=== PATIENT | male | born 1950 | race Caucasian/White ===

== ENCOUNTER 2018-06-15 14:23 | Inpatient (IN) | payer OTHER, MEDICARE, SELFPAY ==
[2018-06-15] VITALS (14 sets, daily range): BP systolic 96–119; BP diastolic 48–90; PULSE 80–172; RESP 18–94; TEMP 37.2–39.5; O2SAT 23–99; BMI 25.5
--- NOTE | 2018-06-15 14:38 | DI.RAD.S_ITS ---
PROCEDURE: XR CHEST 1V INDICATIONS: cough, fever TECHNIQUE: One view of the chest was acquired. COMPARISON: None. FINDINGS: Surgical changes and devices: None. Lungs and pleura: There is a moderate-sized area of consolidation identified at the right lung base. Haziness to the left lung base is evident overlying the diaphragm. No left-sided areas of chronic consolidation are evident. There is no pneumothorax or large effusion. Mediastinum: Mediastinal contours appear normal. Heart size is normal. Bones and chest wall: No suspicious bony lesions. Overlying soft tissues appear unremarkable. IMPRESSION: Right lower lobe pneumonia. Followup imaging in 4-6 weeks is recommended to document resolution. Dictated by: Ad Nunez M.D. on 06/15/2018 at 14:21 Approved by: Ad Nunez M.D. on 06/15/2018 at 14:23
[2018-06-15 14:48] LABS: Add Manual Diff / Slide Review NO; Basophils Percent Auto 0.1 % (0-2); Eosinophils Percent Auto 1.8 % (2-4); Hematocrit 42.8 % (41-53); Hemoglobin 14.5 g/dL (13.5-17.5); Lymphocytes Percent Auto 53.1 % (25-40); Mean Corpuscular HGB Conc 33.8 % (30-36); Mean Corpuscular Volume 91.7 fL (80-100); Monocytes Percent Auto 4.7 % (3-14); Neutrophils Absolute Auto 8300 /uL (1500-7000); Neutrophils Percent Auto 40.3 % (50-75); Platelet Count 183 X10^3/uL (150-400); Red Blood Cell Count 4.67 X10^6/uL (4.5-5.9); Red Cell Distribution Width 13.1 % (11.6-14.8); White Blood Cell Count 20.6 X10^3/uL (4.5-11.0)
[2018-06-15] MEDS: SODIUM CHLORIDE 0.9% 2,422.17 ML 807.39 ML IV (14:49)
[2018-06-15 14:55] LABS: Influenza A and B by PCR Rapid Negative (Negative)
[2018-06-15 14:56] LABS: Alanine Aminotransferase 68 IU/L (21-72); Albumin 4.2 g/dL (3.5-5.0); Albumin Globulin Ratio 1.4 (1.0-2.8); Alkaline Phosphatase 94 U/L (38-126); Aspartate Aminotransferase 46 IU/L (17-59); BUN Creatinine Ratio 13.8 (6-22); Bilirubin Total 1.3 mg/dL (0.2-1.3); Blood Urea Nitrogen 18 mg/dL (9-20); Calcium 9.1 mg/dL (8.4-10.2); Carbon Dioxide 24 mmol/L (22-32); Chloride 100 mmol/L (98-107); Estimated Glomerular Filt Rate 55.2 mL/min (>60); Globulin 3.1 g/dL (1.7-4.1); Glucose 121 mg/dL (80-110); HEMOLYSIS < 15 (0-50); Sodium 140 mmol/L (137-145); Total Protein 7.3 g/dL (6.3-8.2)
[2018-06-15 15:14] LABS: Procalcitonin 0.09 ng/mL (<0.5)
[2018-06-15] MEDS: METOPROLOL TARTRATE 5 MG/5 ML INJ IV (15:18)
[2018-06-15] MEDS: levoFLOXacin 750 MG/150 ML PIGGYBACK 100 MG IV (16:15)
[2018-06-15 17:56] LABS: Magnesium 2.2 mg/dL (1.6-2.3); Phosphorous 1.9 mg/dL (2.3-3.7)
--- NOTE | 2018-06-15 18:10 | P.HP_ITS ---
History of Present Illness Date Patient Seen: 06/15/18 Time Patient Seen: 18:00 Chief complaint: Afib Narrative: This is a very pleasant 67-year-old male with a past medical history significant for tachyarrhythmia. Apparently patient was diagnosed with tachyarrhythmia around June of last year. He reported ventricular tachycardia He was given a echocardiogram examination and had reportedly normal ejection fraction as well as no significant valvulopathy He has been in his usual state of health when he developed some coughing as well as shortness of breath. He denies any sick contact. No travel outside the country. He denies any recent hospitalization. He reported some mild elevated temperature. He related a recent history of the body aching and feeling of having had a bad cold about 2 weeks ago These new symptoms started slowly after the cold symptoms were resolving. He also reported chest palpitation. He also admitted that he has not taken his beta-duke the last 24 hr. He stated he might have forgotten to take it. In the ED, a chest x-ray showing pneumonia of the right lower lung. He was giving antibiotics. Stated did feel some nausea better. He is about to finish a full sentence without having to stop because of shortness of breath. He is not a smoker. He had a history of malaria about 3 years ago shows completely treated. No other complaints at this time. Patient History Medical History Arrhythmogenic right ventricular tachycardia (Acute) Malaria (Acute) Family & Social History Tobacco & Substance use: Smoking Status Never smoker alcohol intake frequency 0-2 drinks per day Substance Use Type does not use Meds Home Medications Medication Instructions Recorded Confirmed Type metoprolol tartrate 25 mg PO BID 06/15/18 06/15/18 History Allergies Allergy/AdvReac Type Severity Reaction Status Date / Time No Known Drug Allergies Allergy Verified 06/15/18 14:32 Review of Systems Review of Systems All systems reviewed & are unremarkable except as noted in HPI and below Exam Vital Signs (past 8 hours): - 06/15/18 14:30 06/15/18 14:32 06/15/18 14:51 Temperature 103.1 F H Pulse Rate 159 H 118 H 172 H Respiratory Rate 94 H 27 H 20 Blood Pressure 119/74 Blood Pressure [Left Arm] 110/62 112/90 Pulse Oximetry 23 L 95 99 06/15/18 15:00 06/15/18 15:29 06/15/18 16:06 Temperature 101.2 F H Pulse Rate 145 H 95 H 96 H Respiratory Rate 25 H 20 18 Blood Pressure Blood Pressure [Left Arm] 98/69 112/77 111/62 Pulse Oximetry 95 99 98 06/15/18 16:30 06/15/18 17:00 06/15/18 17:30 Temperature Pulse Rate 99 H 102 H 98 H Respiratory Rate 29 H 27 H 24 Blood Pressure Blood Pressure [Left Arm] 119/66 114/68 110/62 Pulse Oximetry 93 91 92 Oxygen Delivery Method Room Air Narrative Exam Narrative: NO ACUTE DISTRESS. PATIENT IS ALERT ORIENTED X3. VITAL SIGNS STABLE HEAD ATRAUMATIC NORMOCEPHALIC NECK : SUPPLE WITHOUT ADENOPATHY NO CAROTID BRUITS EYE: EOMI, PERRLA, NORMAL CONJUNCTIVA; NO JAUNDICE CHEST: REGULAR RATE. NO RUBS. PMI IS NON DISPLACED. NO MURMURS; NORMAL S1- S2 PULMONARY: DECREASED BS OVER THE BASES. MILD BIBASILAR CRACKLES NOTED; NO INCREASED DULLNESS TO PERCUSSION ABDOMEN: SOFT. NONTENDER. NONDISTENDED. BOWEL SOUNDS ARE PRESENT IN ALL 4 QUADRANTS. NO MASS. EXTREMITIES: NO EDEMA.. NO CYANOSIS CLUBBING NOTED. NEURO: CRANIAL NERVES 2-12 GROSSLY INTACT. NO FOCAL NEUROLOGICAL DEFICIT NOTED. MSK: NORMAL RANGE OF MOTION FOR AGE. NO JOINT EFFUSION. SKIN: NORMAL FOR ETHNICITY; NO ECCHYMOSIS. NO LESION. GOOD TURGOR.; NO RASHES : NORMAL EXTERNAL GENITALIA. PSYCH : APPROPRIATE MOOD AND AFFECT. ALERT AWAKE ORIENTED X3 Objective Labs Result Diagrams: 06/15/18 Unknown 06/15/18 Unknown Labs: Laboratory Results - last 24 hr 06/15/18 06/15/18 06/15/18 14:29 14:42 Unknown WBC 20.6 H RBC 4.67 Hgb 14.5 Hct 42.8 MCV 91.7 MCH 31.0 MCHC 33.8 RDW 13.1 Plt Count 183 Neut % (Auto) 40.3 L Lymph % (Auto) 53.1 H [place] % (Auto) 4.7 Eos % (Auto) 1.8 L Baso % (Auto) 0.1 Neut # (Auto) 8300 H Sodium Potassium Chloride Carbon Dioxide BUN Creatinine Estimated GFR BUN/Creatinine Ratio Glucose Lactate 1.0 Calcium Phosphorus Magnesium Total Bilirubin AST ALT Alkaline Phosphatase Total Protein Albumin Globulin Albumin/Globulin Ratio Procalcitonin Influenza A & B (PCR) Negative 06/15/18 06/15/18 Unknown Unknown WBC RBC Hgb Hct MCV MCH MCHC RDW Plt Count Neut % (Auto) Lymph % (Auto) [place] % (Auto) Eos % (Auto) Baso % (Auto) Neut # (Auto) Sodium 140 Potassium 4.0 Chloride 100 Carbon Dioxide 24 BUN 18 Creatinine 1.30 H Estimated GFR 55.2 L BUN/Creatinine Ratio 13.8 Glucose 121 H Lactate Calcium 9.1 Phosphorus 1.9 L Magnesium 2.2 Total Bilirubin 1.3 AST 46 ALT 68 Alkaline Phosphatase 94 Total Protein 7.3 Albumin 4.2 Globulin 3.1 Albumin/Globulin Ratio 1.4 Procalcitonin 0.09 Influenza A & B (PCR) Assessment & Plan Plan: Assessment/Plan Narrative: IMPRESSION AND PLAN RIGHT LOWER LOBE PNEUMONIA. THIS IS MOST LIKELY COMMUNITY-ACQUIRED PNEUMONIA. PATIENT WILL BE STARTED ON CEFEPIME AND AZITHROMYCIN FOR NOW. SPUTUM CULTURE WILL BE ORDERED. OXYGEN THERAPY NEEDED ONLY. CONTINUOUS PULSE OX INDICATED. TACHY-ARRHYTHMIA. MOST LIKELY SECONDARY TO NONCOMPLIANCE. HIS VITAL SIGNS ARE STABLE AT THIS POINT. HIS TACHYCARDIA HAS RESOLVED AFTER IV TREATMENT. WE WILL RESTART HIS HOME DOSE TONIGHT LEUKOCYTOSIS. SECONDARY TO PNEUMONIA. SPUTUM CULTURE WILL BE SENT. BLOOD CULTURE HAS BEEN COLLECTED. A DAILY CBC TO FOLLOW; WILL ORDER A UA FOR COMPLETENESS. SIRS CRITERIA MET VS POSSIBLE SEPSIS SUSPECTED. PATIENT WILL BE CONTINUED ON IV FLUID; CONTINUE CURRENT ANTIBIOTICS. FOLLOW CULTURES. WATCH VITAL ORGANS CLOSELY. ADDITIONAL MANAGEMENT INDICATED CLINICALLY ACUTE RENAL FAILURE. MOST LIKELY PRE RENAL AZOTEMIA. WE WILL AVOID ALL NEPHROTOXIN MEDICATIONS. DOSE ALL MEDICATION PER GFR. DAILY LABS TO FOLLOW ; IV FLUID HYPER GLYCEMIA. CAUSE IS UNCLEAR. ADDITIONAL MANAGEMENT OUTPATIENT. HYPOPHOSPHATEMIA. THIS WILL BE REPLACED P.O. TODAY. REPEAT LABS IN THE MORNING DURATION OF STAY IS BETWEEN 2-3 DAYS. Time Spent With Patient Time with patient: Greater than 35 minutes
[2018-06-15] MEDS: SODIUM CHLORIDE 0.45% 1,000 ML 100 ML IV (18:43)
[2018-06-15] MEDS: SODIUM,POTASSIUM PHOSPHATES PACKET 2 EACH PO (18:59)
--- NOTE | 2018-06-15 19:33 | ED_ITS ---
HPI - Arrhythmia/Palpitations General Chief Complaint: Arrhythmia/Palpitations Stated Complaint: Afib Time Seen by Provider: 06/15/18 14:23 Source: patient and family Mode of arrival: ambulatory Limitations: no limitations History of Present Illness HPI narrative: 67-year-old male, nonsmoker presents with his and a chief complaint of a productive cough for the past few days with subjective fever and occasional chills. He denies nausea or vomiting but has had an episode or 2 of diarrhea. He is visiting locally from his home in [facility] and went to the walk-in clinic for evaluation. He had significantly elevated heart rate and was sent here for evaluation. 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 His last trip was in December. He routinely takes metoprolol twice daily but states he has for gotten since traveling and is working on developing a process to not forget. It is unclear when his rapid heart rate started as he is largely asymptomatic from it MD complaint: rapid heart beat and heart racing Arrhythmia history: other Associated symptoms: shortness of breath and cough Treatments prior to arrival: beta-duke Related Data Home Medications Medication Instructions Recorded Confirmed metoprolol tartrate 25 mg PO BID 06/15/18 06/15/18 Allergies Allergy/AdvReac Type Severity Reaction Status Date / Time No Known Drug Allergies Allergy Verified 06/15/18 14:32 Review of Systems Review of Systems All systems reviewed & are unremarkable except as noted in HPI and below Constitutional Denies chills, Reports fever(s), Denies lethargy and Denies weakness Eyes Denies change in vision, Denies eye discharge, Denies irritation and Denies loss of vision ENT Ears, Nose, Mouth, and Throat: Denies change in voice, Denies neck pain and Denies sore throat Cardiovascular Denies chest pain, Reports rapid heart rate, Denies irregular heart rhythm, Denies lightheadedness, Denies palpitations, Reports dyspnea, Denies dyspnea on exertion and Denies orthopnea Respiratory Reports cough, Reports dyspnea, Denies dyspnea on exertion and Denies wheezing Gastrointestinal Gastrointestinal: Denies abdominal pain, Denies change in bowel habits, Reports diarrhea, Denies nausea and Denies vomiting Genitourinary Denies hematuria, Denies flank pain, Denies urinary incontinence and Denies urinary urgency Musculoskeletal Denies neck pain Integumentary/Breasts Denies pruritus, Denies erythema, Denies rash and Denies wounds Neurologic Denies confusion, Denies loss of vision and Denies weakness Psychiatric Denies anxiety, Denies confusion, Denies depression, Denies homicidal ideation and Denies suicidal ideation Endocrine Denies palpitations Hematologic/Lymphatic Denies easy bruising Allergic/Immunologic Denies wheezing PFSH Medical History Arrhythmogenic right ventricular tachycardia (Acute) Malaria (Acute) Social History household members: spouse Smoking Status: Never smoker alcohol intake: former Exam Narrative Exam Narrative: GENERAL: This is a well-nourished, well-developed patient, in mild distress. HEAD: Atraumatic. Normocephalic. No temporal or scalp tenderness. EYES: Pupils equal round and reactive. Extraocular motions intact. No scleral icterus. No injection or drainage. ENT: Nose without bleeding, purulent drainage or septal hematoma. Throat without erythema, tonsillar hypertrophy or exudate. Uvula midline. Airway patent. NECK: Trachea midline. No JVD or lymphadenopathy. Supple, nontender, no meningeal signs. CARDIOVASCULAR: Tachycardic and regular rhythm without murmurs, gallops, or rubs. RESPIRATORY: Crackles in right base GASTROINTESTINAL: Abdomen soft, non-tender, nondistended. No hepato-splenomegaly , or palpable masses. No guarding. EXTREMITIES: No clubbing, cyanosis, or edema. No joint tenderness, effusion, or edema noted. BACK: Nontender without deformity or crepitance. No flank tenderness. NEURO: AOx3. SKIN: No rash or erythema. Initial Vital Signs Initial Vital Signs: Vital Signs Pulse Rate 159 H 06/15/18 14:30 Respiratory Rate 94 H 06/15/18 14:30 Blood Pressure 110/62 06/15/18 14:30 Pulse Oximetry 23 L 06/15/18 14:30 Course Orders Ordered: ED Orders 06/15/18 14:29 Influenza A and B by PCR Rapid Stat 06/15/18 14:38 XR chest 1V Stat 06/15/18 14:39 Blood Culture Stat 06/15/18 14:42 Lactate (Lactic Acid) Stat 06/15/18 16:59 Education, smoking cessation ONGOING 06/15/18 17:04 Consult to Discharge Planning Routine Consult to Occupational Therapy Evaluate & Treat Consult to Physical Therapy Evaluate & Treat 06/16/18 05:00 Complete Blood Count AUTO DIFF DAILY Comprehensive Metabolic Panel DAILY 06/16/18 08:00 EKG-12 Lead Routine 06/17/18 05:00 Complete Blood Count AUTO DIFF DAILY Comprehensive Metabolic Panel DAILY 06/18/18 05:00 Complete Blood Count AUTO DIFF DAILY Comprehensive Metabolic Panel DAILY 06/19/18 05:00 Complete Blood Count AUTO DIFF DAILY Comprehensive Metabolic Panel DAILY Acetaminophen (Tylenol) 650 mg PO Q6HR PRN PRN Reason: As Needed for Fever/Mild Pain Al Hydrox/Mg Hydrox/Simethicone (Maalox Plus) 30 ml PO Q6HR PRN PRN Reason: Dyspepsia Azithromycin (Zithromax) 500 mg PO DAILY LISA Bisacodyl (Dulcolax) 10 mg PO DAILY PRN PRN Reason: Constipation Calcium Carbonate (Tums) 1,000 mg PO Q4HR PRN PRN Reason: Dyspepsia Diphenhydramine HCl (Benadryl) 25 mg IV Q6HR PRN PRN Reason: NAUSEA AND ITCHING Heparin Sodium (Porcine) (Heparin) 5,000 unit SUBCUT BID [facility] Sodium Chloride (Normal Saline 0.9%) 2,422.17 mls @ 807.39 mls/hr 30 ml/kg infuse over 3 hr (2422.17 ml) IV CONT LISA Last Infusion: 06/15/18 18:12 Dose: 0 mls/hr Admin: 06/15/18 14:49 Dose: 807.39 mls/hr Sodium Chloride (Normal Saline 0.45%) 1,000 mls @ 100 mls/hr IV CONT LISA Last Admin: 06/15/18 18:43 Dose: 100 mls/hr Cefepime HCl 1 gm/ Sodium (Chloride) 100 mls @ 200 mls/hr IV Q12H LISA Lorazepam (Ativan) 0.5 mg IV Q6HR PRN PRN Reason: Anxiety Metoprolol Tartrate (Lopressor) 25 mg PO BID LISA Metoprolol Tartrate (Lopressor) 5 mg IV Q6H PRN PRN Reason: SBP>180 AND/OR HR >110 Morphine Sulfate (Morphine) 2 mg IV Q4HR PRN PRN Reason: Pain, Moderate (4-6) Ondansetron HCl (Zofran) 4 mg IV Q4HR PRN PRN Reason: Nausea Pantoprazole Sodium (Protonix) 20 mg PO 0600 [facility] Potassium Phos/Sodium Phos (Phos-Nak Packet) 2 each PO DAILY LISA Stop: 06/16/18 09:01 Last Admin: 06/15/18 18:59 Dose: 2 each Discontinued Medications Levofloxacin (Levaquin) 750 mg in 150 mls @ 100 mls/hr IV NOW ONE Stop: 06/15/18 17:22 Last Infusion: 06/15/18 18:12 Dose: 0 mls/hr Admin: 06/15/18 16:15 Dose: 100 mls/hr Metoprolol Tartrate (Lopressor) 5 mg IV NOW ONE Stop: 06/15/18 15:19 Last Admin: 06/15/18 15:18 Dose: 5 mg Reevaluation(s) Reevaluation #1: The patient's tachycardia improves rather impressively after fluids, fever control and 1 dose of IV metoprolol. Consultations Consultation #1: Called to hospitalist for admission Vital Signs - 8 hr 06/15/18 14:30 06/15/18 14:32 06/15/18 14:51 Temperature 103.1 F H Pulse Rate 159 H 118 H 172 H Respiratory Rate 94 H 27 H 20 Blood Pressure 119/74 Blood Pressure [Left Arm] 110/62 112/90 Pulse Oximetry 23 L 95 99 06/15/18 15:00 06/15/18 15:29 06/15/18 16:06 Temperature 101.2 F H Pulse Rate 145 H 95 H 96 H Respiratory Rate 25 H 20 18 Blood Pressure Blood Pressure [Left Arm] 98/69 112/77 111/62 Pulse Oximetry 95 99 98 06/15/18 16:30 06/15/18 17:00 06/15/18 17:30 Temperature Pulse Rate 99 H 102 H 98 H Respiratory Rate 29 H 27 H 24 Blood Pressure Blood Pressure [Left Arm] 119/66 114/68 110/62 Pulse Oximetry 93 91 92 06/15/18 18:21 Temperature 101.8 F H Pulse Rate 97 H Respiratory Rate 24 Blood Pressure 112/66 Blood Pressure [Left Arm] Pulse Oximetry 93 MDM - Arrhythmia/Palpitations Lab Data Result diagrams: 06/15/18 Unknown 06/15/18 Unknown Lab Results 06/15/18 06/15/18 06/15/18 Range/Units 14:29 14:42 Unknown WBC 20.6 H (4.5-11.0) X10^3/uL RBC 4.67 (4.5-5.9) X10^6/uL Hgb 14.5 (13.5-17.5) g/dL Hct 42.8 (41-53) % MCV 91.7 (80-100) fL MCH 31.0 (26-34) PG MCHC 33.8 (30-36) % RDW 13.1 (11.6-14.8) % Plt Count 183 (150-400) X10^3/uL Neut % (Auto) 40.3 L (50-75) % Lymph % (Auto) 53.1 H (25-40) % [place] % (Auto) 4.7 (3-14) % Eos % (Auto) 1.8 L (2-4) % Baso % (Auto) 0.1 (0-2) % Neut # (Auto) 8300 H (6940-0977) /uL Sodium (137-145) mmol/L Potassium (3.4-5.1) mmol/L Chloride (98-107) mmol/L Carbon Dioxide (22-32) mmol/L BUN (9-20) mg/dL Creatinine (0.66-1.25) mg/dL Estimated GFR (>60) mL/min BUN/Creatinine Ratio (6-22) Glucose (80-110) mg/dL Lactate 1.0 (0.7-2.1) mmol/L Calcium (8.4-10.2) mg/dL Phosphorus (2.3-3.7) mg/dL Magnesium (1.6-2.3) mg/dL Total Bilirubin (0.2-1.3) mg/dL AST (17-59) IU/L ALT (21-72) IU/L Alkaline Phosphatase (38-126) U/L Total Protein (6.3-8.2) g/dL Albumin (3.5-5.0) g/dL Globulin (1.7-4.1) g/dL Albumin/Globulin Ratio (1.0-2.8) Procalcitonin (<0.5) ng/mL Influenza A & B (PCR) Negative (Negative) 06/15/18 06/15/18 Range/Units Unknown Unknown WBC (4.5-11.0) X10^3/uL RBC (4.5-5.9) X10^6/uL Hgb (13.5-17.5) g/dL Hct (41-53) % MCV (80-100) fL MCH (26-34) PG MCHC (30-36) % RDW (11.6-14.8) % Plt Count (150-400) X10^3/uL Neut % (Auto) (50-75) % Lymph % (Auto) (25-40) % [place] % (Auto) (3-14) % Eos % (Auto) (2-4) % Baso % (Auto) (0-2) % Neut # (Auto) (2237-7756) /uL Sodium 140 (137-145) mmol/L Potassium 4.0 (3.4-5.1) mmol/L Chloride 100 (98-107) mmol/L Carbon Dioxide 24 (22-32) mmol/L BUN 18 (9-20) mg/dL Creatinine 1.30 H (0.66-1.25) mg/dL Estimated GFR 55.2 L (>60) mL/min BUN/Creatinine Ratio 13.8 (6-22) Glucose 121 H (80-110) mg/dL Lactate (0.7-2.1) mmol/L Calcium 9.1 (8.4-10.2) mg/dL Phosphorus 1.9 L (2.3-3.7) mg/dL Magnesium 2.2 (1.6-2.3) mg/dL Total Bilirubin 1.3 (0.2-1.3) mg/dL AST 46 (17-59) IU/L ALT 68 (21-72) IU/L Alkaline Phosphatase 94 (38-126) U/L Total Protein 7.3 (6.3-8.2) g/dL Albumin 4.2 (3.5-5.0) g/dL Globulin 3.1 (1.7-4.1) g/dL Albumin/Globulin Ratio 1.4 (1.0-2.8) Procalcitonin 0.09 (<0.5) ng/mL Influenza A & B (PCR) (Negative) MDM Narrative Medical decision making narrative: Patient presents with grossly abnormal vital signs, the suspicion of early sepsis and large pneumonia on x-ray in the presence of elevated white blood cells. His tachyarrhythmia is likely due to a combination of underlying infection and medical noncompliance, nonetheless the patient's is sufficiently ill to warrant hospitalization for ongoing evaluation , treatment and stabilization Discharge Plan Departure Patient Disposition: Admitted As Inpatient Clinical Impression: Pneumonia Discharge Date/Time: 06/15/18 18:14 Interventions: ED Discharge Assessment Last Done: 06/15/18 18:14 Admit Date/Time: 06/15/18 17:03 Admit Provider: Anthony Zhang
[2018-06-15 19:52] LABS: Appearance Urine UA CLEAR; Bilirubin Urine UA NEGATIVE (NEGATIVE); Color Urine UA YELLOW; Glucose Urine UA NEGATIVE (Normal); Ketones Urine UA NEGATIVE (NEGATIVE); Leukocyte Esterase Urine UA NEGATIVE (NEGATIVE); Nitrite Urine UA NEGATIVE (Negative); Occult Blood Urine UA 1+ (Negative); Protein Urine UA TRACE (Negative); Specific Gravity Urine UA 1.025 (1.000-1.035); Urobilinogen Urine UA 0.2 E.U./dL (0.2)
[2018-06-15] MEDS: ACETAMINOPHEN 325 MG TABLET 650 MG PO (19:55)
[2018-06-15] MEDS: HEPARIN 5,000 UNIT/ML VIAL 5000 UNIT SUBCUT (19:55)
[2018-06-15] MEDS: CEFEPIME 1 GM in SODIUM CHLORIDE 0.9% 100 ML 200 ML IV (19:56)
[2018-06-15] MEDS: METOPROLOL IR 25 MG TABLET PO (19:56)
[2018-06-15 20:02] LABS: RBC Urine 0-1/HPF (0-5/HPF); Squamous Epithelial Cell Urine 0-1 /HPF; WBC Urine 0-1/HPF (0-5/HPF)
[2018-06-15 20:03] LABS: Bacteria Urine Moderate (10-30); Culture Indicated Urine Cult Not Indicated; Mucus Urine 1+ (Negative)
[2018-06-16] VITALS (14 sets, daily range): BP systolic 107–124; BP diastolic 57–68; PULSE 81–103; RESP 16–24; TEMP 36.7–39.2; O2SAT 93–98
[2018-06-16] MEDS: ACETAMINOPHEN 325 MG TABLET 650 MG PO ×3 (03:57→21:23)
[2018-06-16] MEDS: SODIUM CHLORIDE 0.45% 1,000 ML 100 ML IV (04:22)
[2018-06-16] MEDS: PANTOPRAZOLE 20 MG TABLET PO (06:00)
[2018-06-16 06:35] LABS: Add Manual Diff / Slide Review NO; Basophils Percent Auto 0.1 % (0-2); Eosinophils Percent Auto 3.4 % (2-4); Lymphocytes Percent Auto 50.7 % (25-40); Mean Corpuscular HGB Conc 34.4 % (30-36); Mean Corpuscular Hemoglobin 31.3 PG (26-34); Monocytes Percent Auto 6.1 % (3-14); Neutrophils Absolute Auto 6200 /uL (1500-7000); Neutrophils Percent Auto 39.7 % (50-75); Platelet Count 151 X10^3/uL (150-400); Red Blood Cell Count 3.85 X10^6/uL (4.5-5.9); Red Cell Distribution Width 12.8 % (11.6-14.8); White Blood Cell Count 15.7 X10^3/uL (4.5-11.0)
[2018-06-16 06:41] LABS: Alanine Aminotransferase 61 IU/L (21-72); Albumin 3.2 g/dL (3.5-5.0); Albumin Globulin Ratio 1.2 (1.0-2.8); Alkaline Phosphatase 77 U/L (38-126); Aspartate Aminotransferase 33 IU/L (17-59); Bilirubin Total 1.6 mg/dL (0.2-1.3); Blood Urea Nitrogen 11 mg/dL (9-20); Carbon Dioxide 23 mmol/L (22-32); Chloride 106 mmol/L (98-107); Estimated Glomerular Filt Rate > 60.0 mL/min (>60); Globulin 2.6 g/dL (1.7-4.1); Glucose 114 mg/dL (80-110); HEMOLYSIS < 15 (0-50); Potassium 3.8 mmol/L (3.4-5.1); Sodium 142 mmol/L (137-145); Total Protein 5.8 g/dL (6.3-8.2)
[2018-06-16] MEDS: AZITHROMYCIN 250 MG TABLET 500 MG PO (09:21)
[2018-06-16] MEDS: CEFEPIME 1 GM in SODIUM CHLORIDE 0.9% 100 ML 200 ML IV (09:21)
[2018-06-16] MEDS: SODIUM,POTASSIUM PHOSPHATES PACKET 2 EACH PO (09:22)
[2018-06-16] MEDS: METOPROLOL IR 25 MG TABLET PO ×2 (09:22→21:22)
[2018-06-16] MEDS: HEPARIN 5,000 UNIT/ML VIAL 5000 UNIT SUBCUT (09:22)
--- NOTE | 2018-06-16 10:15 | PT.IIE ---
Addendum entered and electronically signed by Marvin Aviles, PT 06/16/18 10:26: discussed case with OT, pt was able to use BR indep. at end of session, donned socks indep. No acute OT appears to be necessary at this time. Original Note: Medical History (Last Reviewed 06/15/18 @ 19:31 by Kenneth York DO) Arrhythmogenic right ventricular tachycardia (Acute) Malaria (Acute) Physical Therapy Inpatient Evaluation/Re-Eval M1 PT/OT-IP Prior Functional Status Start: 06/16/18 10:18 Freq: NEEDED Status: Active Protocol: Document 06/16/18 10:15 [facility] (Rec: 06/16/18 10:25 [facility] [id number]) Medical Review Prior Functional Status Medical History Reviewed Yes Mobility and Gait indep. community ambulation without device Activities of Daily Living and IADL's indep. I/ADLs Prior Functional Level (Other details) walks 2-4 miles per day in [place] (lives in [place]) Social History Household Members spouse Living Arrangements Apartment/Condo Number of Floors (Floors) One Floor Number of Stairs To Enter/Railing? 8 SE with rail Home Environment Standard Height Toilet Additional Social History Comment Pt with h/o tachyarrhythmia, presented with c/o increased cough and SOB. Chest radiograph showed R lower lobe pneumonia. M2 PT-IP Current Condition Start: 06/16/18 10:18 Freq: NEEDED Status: Active Protocol: Document 06/16/18 10:15 [facility] (Rec: 06/16/18 10:25 [facility] [id number]) Physical Therapy Current Condition Current Condition Evaluation Date 06/16/18 Treatment Diagnosis pneumonia, decreased activity tolerance M3 PT-IP Subjective Start: 06/16/18 10:18 Freq: NEEDED Status: Active Protocol: Document 06/16/18 10:15 [facility] (Rec: 06/16/18 10:25 [facility] [id number]) Subjective Physical Therapy Visit Type Type Initial Evaluation Visit Start Time 09:49 Visit Stop Time 10:15 Total Visit Minutes 26 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 Patient Goals to get out of hospital Therapy Pain Assessment Pain Present Pain Present Denied Pain M4 PT-IP Mobility and Gait Start: 06/16/18 10:18 Freq: NEEDED Status: Active Protocol: Document 12/15/18 10:15 [facility] (Rec: 06/16/18 10:25 [facility] [id number]) PT-Bed Mobility Assessment Supine to Sit Supine to Sit Independent Sit to Supine Sit to Supine Independent Scooting Scooting to Edge of Bed Independent PT-Transfer Assessment Sit to and From Stand Sit to and from Stand Independent Equipment Transfer Assistive Device None Transfers Transfer Destination Bed Transfer Technique Stand Step Pivot Transfer Ability Level of Assist Independent Gait Assessment Gait Gait Assistance Required: Independent Distance (Feet) 700 Assistive Devices Assistive Device None Gait Deviations General Gait Pattern Within Normal Limits Comments Gait Comments pt ambulated entire floor of 2nd level, no c/o SOB or increased HR. O2 saturation 96 % and HR 90 bpm after gait. Stair Climbing Assessment Evaluation Level of Assist On Stairs Independent Devices Stair Climbing Assistive Devices None Technique/Endurance Stair Climbing Direction Ascend and Descend Stair Climbing Technique Step Over Step Number of Steps Climbed 3 Query Text: PT-Balance Assessment Sitting Balance and Reactions Static Sitting Balance Ability Good Dynamic Sitting Balance Ability Good Standing Balance and Reactions Static Standing Balance Ability Good Dynamic Standing Balance Ability Good Device Used none M5 PT-IP Objective Assessments Start: 06/16/18 10:18 Freq: NEEDED Status: Active Protocol: Document 06/16/18 10:15 [facility] (Rec: 06/16/18 10:25 [facility] [id number]) Orientation Orientation/Cognition Level of Alertness Alert Orientation Name Age Birthday Month Date Year Day of Week Place Situation Gross Range of Motion Lower Extremity ROM Assessment Within Functional Limits Strength Lower Extremity Strength Assessment Within Functional Limits Coordination Assessment Gross Coordination Gross Coordination WNL Sensation Assessment Sensation Gross Sensation WNL Muscle Tone Muscle Tone WNL Yes M6 PT-IP Treatment Start: 06/16/18 10:18 Freq: NEEDED Status: Active Protocol: Document 06/16/18 10:15 [facility] (Rec: 06/16/18 10:25 [facility] [id number]) Physical Therapy Treatment Education Education Provided Safety Other Treatments Other Treatment Performed discusssed assistance when ambulating with family and/or staff when IV pole is intact. M7 PT-IP Assessment and Plan Start: 06/16/18 10:18 Freq: NEEDED Status: Active Protocol: Document 06/16/18 10:15 [facility] (Rec: 06/16/18 10:25 [facility] [id number]) PT Summary Assessment and Plan Potential Rehabilitation Potential Good Status of Condition at Evaluation Stable Summary Progress Towards Goals Safe For Discharge Assessment Summary Pt is able to walk 700+ ft with no imbalance, normal gait , and no c/o fatigue or SOB at this time. WI and O2 saturation WNL after ambulation. He is indep. with bed mobility. At this time, pt is cleared from physical therapy to d/c when medically stable, no further acute PT needs at this time. Pt encouraged to ambulate in hallway as tolerated with a family member or staff if alerting the RN first, and will require one person to assist with IV pole management . Frequency of Treatment Frequency Of Treatment Discharge Recommendations To Nursing Amount of Assist Needed Independent Discharge Recommendations PT Discharge Recommendations Home
--- NOTE | 2018-06-16 10:53 | PM.PN.1 ---
Subjective Date Patient Seen: 06/16/18 Time Patient Seen: 08:20 Interval history: PATIENT HAD A GOOD NIGHT NO FEVER OR CHILLS REPORTED NOT REQUIRING ANY OXYGEN TO MAINTAIN PROPER SAT NO SIGNIFICANT ISSUES OVERNIGHT Exam Vital Signs (past 8 hours): - 06/16/18 03:57 06/16/18 03:59 06/16/18 05:08 Temperature 102.3 F H 102.3 F H 98.8 F Pulse Rate 96 H Respiratory Rate 18 Blood Pressure 124/68 Pulse Oximetry 93 06/16/18 08:54 06/16/18 09:00 Temperature 98.6 F Pulse Rate 92 H Respiratory Rate 18 Blood Pressure 115/63 Pulse Oximetry 98 98 Oxygen Delivery Method Room Air Narrative Exam Narrative: NO ACUTE DISTRESS. PATIENT IS ALERT ORIENTED X3. VITAL SIGNS STABLE HEAD ATRAUMATIC NORMOCEPHALIC NECK : SUPPLE WITHOUT ADENOPATHY NO CAROTID BRUITS EYE: EOMI, PERRLA, NORMAL CONJUNCTIVA; NO JAUNDICE CHEST: REGULAR RATE. NO RUBS. PMI IS NON DISPLACED. NO MURMURS; NORMAL S1-S2 PULMONARY: DECREASED BS OVER THE BASES. MILD BIBASILAR CRACKLES NOTED; NO INCREASED DULLNESS TO PERCUSSION ABDOMEN: SOFT. NONTENDER. NONDISTENDED. BOWEL SOUNDS ARE PRESENT IN ALL 4 QUADRANTS. NO MASS. EXTREMITIES: NO EDEMA.. NO CYANOSIS CLUBBING NOTED. NEURO: CRANIAL NERVES 2-12 GROSSLY INTACT. NO FOCAL NEUROLOGICAL DEFICIT NOTED. MSK: NORMAL RANGE OF MOTION FOR AGE. NO JOINT EFFUSION. SKIN: NORMAL FOR ETHNICITY; NO ECCHYMOSIS. NO LESION. GOOD TURGOR.; NO RASHES : NORMAL EXTERNAL GENITALIA. PSYCH : APPROPRIATE MOOD AND AFFECT. ALERT AWAKE ORIENTED X3 Objective Labs Result Diagrams: 06/16/18 06:15 06/16/18 06:15 Labs: Laboratory Results - last 24 hr 06/15/18 06/15/18 06/15/18 14:29 14:42 19:50 WBC RBC Hgb Hct MCV MCH MCHC RDW Plt Count Neut % (Auto) Lymph % (Auto) [place] % (Auto) Eos % (Auto) Baso % (Auto) Neut # (Auto) Sodium Potassium Chloride Carbon Dioxide BUN Creatinine Estimated GFR BUN/Creatinine Ratio Glucose Lactate 1.0 Calcium Phosphorus Magnesium Total Bilirubin AST ALT Alkaline Phosphatase Total Protein Albumin Globulin Albumin/Globulin Ratio Procalcitonin Urine Color Yellow Urine Appearance Clear Urine pH 5.0 Ur Specific [place] 1.025 Urine Protein Trace H Urine Glucose (UA) Negative Urine Ketones Negative Urine Occult Blood 1+ H Urine Nitrate Negative Urine Bilirubin Negative Urine Urobilinogen 0.2 Ur Leukocyte Esterase Negative Urine RBC 0-1/hpf Urine WBC 0-1/hpf Ur Squamous Epith Cells 0-1 /hpf Urine Bacteria Moderate (10-30) H Urine Mucus 1+ H Ur Culture Indicated? Cult not indicated Micro UA Comment Not Reportable Influenza A & B (PCR) Negative 06/15/18 06/15/18 06/15/18 Unknown Unknown Unknown WBC 20.6 H RBC 4.67 Hgb 14.5 Hct 42.8 MCV 91.7 MCH 31.0 MCHC 33.8 RDW 13.1 Plt Count 183 Neut % (Auto) 40.3 L Lymph % (Auto) 53.1 H [place] % (Auto) 4.7 Eos % (Auto) 1.8 L Baso % (Auto) 0.1 Neut # (Auto) 8300 H Sodium 140 Potassium 4.0 Chloride 100 Carbon Dioxide 24 BUN 18 Creatinine 1.30 H Estimated GFR 55.2 L BUN/Creatinine Ratio 13.8 Glucose 121 H Lactate Calcium 9.1 Phosphorus 1.9 L Magnesium 2.2 Total Bilirubin 1.3 AST 46 ALT 68 Alkaline Phosphatase 94 Total Protein 7.3 Albumin 4.2 Globulin 3.1 Albumin/Globulin Ratio 1.4 Procalcitonin 0.09 Urine Color Urine Appearance Urine pH Ur Specific [place] Urine Protein Urine Glucose (UA) Urine Ketones Urine Occult Blood Urine Nitrate Urine Bilirubin Urine Urobilinogen Ur Leukocyte Esterase Urine RBC Urine WBC Ur Squamous Epith Cells Urine Bacteria Urine Mucus Ur Culture Indicated? Micro UA Comment Influenza A & B (PCR) 06/16/18 06/16/18 06:15 06:15 WBC 15.7 H RBC 3.85 L Hgb 12.0 L Hct 35.0 L MCV 91.0 MCH 31.3 MCHC 34.4 RDW 12.8 Plt Count 151 Neut % (Auto) 39.7 L Lymph % (Auto) 50.7 H [place] % (Auto) 6.1 Eos % (Auto) 3.4 Baso % (Auto) 0.1 Neut # (Auto) 6200 Sodium 142 Potassium 3.8 Chloride 106 Carbon Dioxide 23 BUN 11 Creatinine 1.00 Estimated GFR > 60.0 BUN/Creatinine Ratio 11.0 Glucose 114 H Lactate Calcium 8.0 L Phosphorus Magnesium Total Bilirubin 1.6 H AST 33 ALT 61 Alkaline Phosphatase 77 Total Protein 5.8 L Albumin 3.2 L Globulin 2.6 Albumin/Globulin Ratio 1.2 Procalcitonin Urine Color Urine Appearance Urine pH Ur Specific [place] Urine Protein Urine Glucose (UA) Urine Ketones Urine Occult Blood Urine Nitrate Urine Bilirubin Urine Urobilinogen Ur Leukocyte Esterase Urine RBC Urine WBC Ur Squamous Epith Cells Urine Bacteria Urine Mucus Ur Culture Indicated? Micro UA Comment Influenza A & B (PCR) Assessment & Plan Plan: Assessment/Plan Narrative: IMPRESSION AND PLAN RIGHT LOWER LOBE PNEUMONIA. THIS IS MOST LIKELY COMMUNITY-ACQUIRED PNEUMONIA. PATIENT WILL BE STARTED ON CEFEPIME AND AZITHROMYCIN FOR NOW. SPUTUM CULTURE PENDING . OXYGEN THERAPY NEEDED ONLY. CONTINUOUS PULSE OX INDICATED. INCENTIVE SPIROMETERY WA; ABG AND CXR SERIALLY TO FOLLOW INDICATED; ENCOURAGE AMB TACHY-ARRHYTHMIA. MOST LIKELY SECONDARY TO NONCOMPLIANCE. HIS VITAL SIGNS ARE STABLE AT THIS POINT. HIS TACHYCARDIA HAS RESOLVED AFTER IV TREATMENT. RESTARTED ON HIS HOME METOPROLOL DOSE LEUKOCYTOSIS. SECONDARY TO PNEUMONIA. IMPROVED; FOLLOW CULTURES CLOSELY. BLOOD CULTURE HAS BEEN COLLECTED AND ARE NEG TO DATE. DAILY CBC TO FOLLOW; BACTERURIA ON UA; PATIENT ALREADY ON ABX. DAILY CBC TO FOLLOW SIRS CRITERIA MET VS POSSIBLE SEPSIS SUSPECTED. PATIENT WILL BE CONTINUED ON IV FLUID; CONTINUE CURRENT ANTIBIOTICS. FOLLOW CULTURES. WATCH VITAL ORGANS CLOSELY. ADDITIONAL MANAGEMENT INDICATED CLINICALLY ACUTE RENAL FAILURE. MOST LIKELY PRE RENAL AZOTEMIA. RESOLVED; WE WILL AVOID ALL NEPHROTOXIN MEDICATIONS. DOSE ALL MEDICATION PER GFR. DAILY LABS TO FOLLOW; IV FLUID HYPER GLYCEMIA. CAUSE IS UNCLEAR. ADDITIONAL MANAGEMENT OUTPATIENT. HYPOPHOSPHATEMIA. THIS WILL BE REPLACED P.O. TODAY. REPEAT LABS IN THE MORNING DC IN NEXT 24-48 HRS Quality VTE Deep Vein Thrombosis/Pulmonary Embolism Present on Admission: No
[2018-06-16 11:29] LABS: Phosphorous 2.5 mg/dL (2.3-3.7)
--- NOTE | 2018-06-16 13:42 | OT.IP.TRT ---
Occupational Therapy Treatment Note M3 OT- IP Subjective and Pain Start: 06/16/18 13:41 Freq: Status: Active Protocol: Document 06/16/18 13:41 [facility] (Rec: 06/16/18 13:42 [facility] [id number]) OT- Subjective Occupational Therapy Visit Type Type Administrative Note Notes Per nursing and PT, OT eval not indicated as pt very independent. Therefore discharge Ot eval orders.
[2018-06-16] MEDS: CEFEPIME 1 GM in SODIUM CHLORIDE 0.9% 100 ML IV (21:22)
[2018-06-17] VITALS (14 sets, daily range): BP systolic 109–134; BP diastolic 68–86; PULSE 94–110; RESP 16–18; TEMP 37.3–39.3; O2SAT 91–98
[2018-06-17] MEDS: ACETAMINOPHEN 325 MG TABLET 650 MG PO ×2 (03:23→15:56)
[2018-06-17] MEDS: PANTOPRAZOLE 20 MG TABLET PO (06:13)
[2018-06-17 06:36] LABS: Add Manual Diff / Slide Review NO; Basophils Percent Auto 0.1 % (0-2); Eosinophils Percent Auto 4.5 % (2-4); Hematocrit 38.6 % (41-53); Hemoglobin 13.2 g/dL (13.5-17.5); Mean Corpuscular HGB Conc 34.1 % (30-36); Mean Corpuscular Hemoglobin 31.1 PG (26-34); Mean Corpuscular Volume 91.1 fL (80-100); Monocytes Percent Auto 5.1 % (3-14); Neutrophils Absolute Auto 6400 /uL (1500-7000); Neutrophils Percent Auto 38.3 % (50-75); Platelet Count 192 X10^3/uL (150-400); Red Blood Cell Count 4.24 X10^6/uL (4.5-5.9); Red Cell Distribution Width 13.1 % (11.6-14.8); White Blood Cell Count 16.8 X10^3/uL (4.5-11.0)
[2018-06-17 06:50] LABS: Alanine Aminotransferase 53 IU/L (21-72); Albumin 3.6 g/dL (3.5-5.0); Albumin Globulin Ratio 1.2 (1.0-2.8); Alkaline Phosphatase 90 U/L (38-126); Aspartate Aminotransferase 25 IU/L (17-59); Bilirubin Total 0.9 mg/dL (0.2-1.3); Blood Urea Nitrogen 8 mg/dL (9-20); Calcium 8.7 mg/dL (8.4-10.2); Carbon Dioxide 28 mmol/L (22-32); Chloride 103 mmol/L (98-107); Estimated Glomerular Filt Rate > 60.0 mL/min (>60); Glucose 117 mg/dL (80-110); HEMOLYSIS < 15 (0-50); Potassium 4.2 mmol/L (3.4-5.1); Sodium 143 mmol/L (137-145); Total Protein 6.6 g/dL (6.3-8.2)
[2018-06-17 06:51] LABS: Phosphorous 3.1 mg/dL (2.3-3.7)
[2018-06-17] MEDS: CEFEPIME 1 GM in SODIUM CHLORIDE 0.9% 100 ML 200 ML IV ×2 (10:32→20:48)
[2018-06-17] MEDS: AZITHROMYCIN 250 MG TABLET 500 MG PO (10:32)
[2018-06-17] MEDS: METOPROLOL IR 25 MG TABLET PO ×2 (10:33→20:48)
--- NOTE | 2018-06-17 11:51 | PM.PN.1 ---
Subjective Date Patient Seen: 06/17/18 Time Patient Seen: 10:11 Interval history: REPORTED FEVER AND CHILLS OVERNIGHT NO COUGH; NO NAUSEA OR VOMITING NO OTHER COMPLAINTS Exam Vital Signs (past 8 hours): - 06/17/18 04:25 06/17/18 04:48 06/17/18 08:00 Temperature 99.1 F 99.1 F 99.2 F Pulse Rate 94 H Respiratory Rate 18 Blood Pressure 125/75 Pulse Oximetry 94 Oxygen Delivery Method Room Air Narrative Exam Narrative: NO ACUTE DISTRESS. PATIENT IS ALERT ORIENTED X3. VITAL SIGNS STABLE HEAD ATRAUMATIC NORMOCEPHALIC NECK : SUPPLE WITHOUT ADENOPATHY NO CAROTID BRUITS EYE: EOMI, PERRLA, NORMAL CONJUNCTIVA; NO JAUNDICE CHEST: REGULAR RATE. NO RUBS. PMI IS NON DISPLACED. NO MURMURS; NORMAL S1-S2 PULMONARY: DECREASED BS OVER THE BASES. MILD BIBASILAR CRACKLES NOTED; NO INCREASED DULLNESS TO PERCUSSION ABDOMEN: SOFT. NONTENDER. NONDISTENDED. BOWEL SOUNDS ARE PRESENT IN ALL 4 QUADRANTS. NO MASS. EXTREMITIES: NO EDEMA.. NO CYANOSIS CLUBBING NOTED. NEURO: CRANIAL NERVES 2-12 GROSSLY INTACT. NO FOCAL NEUROLOGICAL DEFICIT NOTED. MSK: NORMAL RANGE OF MOTION FOR AGE. NO JOINT EFFUSION. SKIN: NORMAL FOR ETHNICITY; NO ECCHYMOSIS. NO LESION. GOOD TURGOR.; NO RASHES : NORMAL EXTERNAL GENITALIA. PSYCH : APPROPRIATE MOOD AND AFFECT. ALERT AWAKE ORIENTED X3 Objective Labs Result Diagrams: 06/17/18 06:20 06/17/18 06:20 Labs: Laboratory Results - last 24 hr 06/17/18 06/17/18 06/17/18 06:20 06:20 06:20 WBC 16.8 H RBC 4.24 L Hgb 13.2 L Hct 38.6 L MCV 91.1 MCH 31.1 MCHC 34.1 RDW 13.1 Plt Count 192 Neut % (Auto) 38.3 L Lymph % (Auto) 52.[address] [place] % (Auto) 5.1 Eos % (Auto) 4.5 H Baso % (Auto) 0.1 Neut # (Auto) 6400 Sodium 143 Potassium 4.2 Chloride 103 Carbon Dioxide 28 BUN 8 L Creatinine 1.00 Estimated GFR > 60.0 BUN/Creatinine Ratio 8.0 Glucose 117 H Calcium 8.7 Phosphorus 3.1 Total Bilirubin 0.9 AST 25 ALT 53 Alkaline Phosphatase 90 Total Protein 6.6 Albumin 3.6 Globulin 3.0 Albumin/Globulin Ratio 1.2 Assessment & Plan Plan: Assessment/Plan Narrative: IMPRESSION AND PLAN RIGHT LOWER LOBE PNEUMONIA. THIS IS MOST LIKELY COMMUNITY-ACQUIRED PNEUMONIA. PATIENT ON CEFEPIME AND AZITHROMYCIN FOR NOW. SPUTUM CULTURE WITH MIXED RESIDENT FRANCINE . OXYGEN THERAPY NEEDED ONLY. CONTINUOUS PULSE OX INDICATED. INCENTIVE SPIROMETERY WA X 10; ABG AND CXR SERIALLY TO FOLLOW INDICATED; ENCOURAGE AMB FIDEL TACHY-ARRHYTHMIA. MOST LIKELY SECONDARY TO NONCOMPLIANCE. HIS VITAL SIGNS ARE STABLE AT THIS POINT. HIS TACHYCARDIA HAS RESOLVED AFTER IV TREATMENT. RESTARTED ON HIS HOME METOPROLOL DOSE LEUKOCYTOSIS. SECONDARY TO PNEUMONIA. WORSENED SLIGHTLY OVERNIGHT; BLOOD CULTURE HAS BEEN COLLECTED AND ARE NEG TO DATE. DAILY CBC TO FOLLOW; BACTERURIA ON UA; PATIENT ALREADY ON ABX. DAILY CBC TO FOLLOW SIRS CRITERIA MET VS POSSIBLE SEPSIS SUSPECTED. PATIENT WILL BE CONTINUED ON IV FLUID; CONTINUE CURRENT ANTIBIOTICS. FOLLOW CULTURES. WATCH VITAL ORGANS CLOSELY. ADDITIONAL MANAGEMENT INDICATED CLINICALLY ACUTE RENAL FAILURE. MOST LIKELY PRE RENAL AZOTEMIA. RESOLVED; WE WILL AVOID ALL NEPHROTOXIN MEDICATIONS. DOSE ALL MEDICATION PER GFR. DAILY LABS TO FOLLOW; IV FLUID HYPER GLYCEMIA. CAUSE IS UNCLEAR. ADDITIONAL MANAGEMENT OUTPATIENT. HYPOPHOSPHATEMIA. RESOLVED DC PER CLINICAL COURSE Quality VTE Deep Vein Thrombosis/Pulmonary Embolism Present on Admission: No
--- NOTE | 2018-06-17 11:56 | P.PN_ITS ---
Subjective Date Patient Seen: 06/17/18 Time Patient Seen: 10:11 Interval history: REPORTED FEVER AND CHILLS OVERNIGHT NO COUGH; NO NAUSEA OR VOMITING NO OTHER COMPLAINTS Exam Vital Signs (past 8 hours): - 06/17/18 04:25 06/17/18 04:48 06/17/18 08:00 Temperature 99.1 F 99.1 F 99.2 F Pulse Rate 94 H Respiratory Rate 18 Blood Pressure 125/75 Pulse Oximetry 94 Oxygen Delivery Method Room Air Narrative Exam Narrative: NO ACUTE DISTRESS. PATIENT IS ALERT ORIENTED X3. VITAL SIGNS STABLE HEAD ATRAUMATIC NORMOCEPHALIC NECK : SUPPLE WITHOUT ADENOPATHY NO CAROTID BRUITS EYE: EOMI, PERRLA, NORMAL CONJUNCTIVA; NO JAUNDICE CHEST: REGULAR RATE. NO RUBS. PMI IS NON DISPLACED. NO MURMURS; NORMAL S1- S2 PULMONARY: DECREASED BS OVER THE BASES. MILD BIBASILAR CRACKLES NOTED; NO INCREASED DULLNESS TO PERCUSSION ABDOMEN: SOFT. NONTENDER. NONDISTENDED. BOWEL SOUNDS ARE PRESENT IN ALL 4 QUADRANTS. NO MASS. EXTREMITIES: NO EDEMA.. NO CYANOSIS CLUBBING NOTED. NEURO: CRANIAL NERVES 2-12 GROSSLY INTACT. NO FOCAL NEUROLOGICAL DEFICIT NOTED. MSK: NORMAL RANGE OF MOTION FOR AGE. NO JOINT EFFUSION. SKIN: NORMAL FOR ETHNICITY; NO ECCHYMOSIS. NO LESION. GOOD TURGOR.; NO RASHES : NORMAL EXTERNAL GENITALIA. PSYCH : APPROPRIATE MOOD AND AFFECT. ALERT AWAKE ORIENTED X3 Objective Labs Result Diagrams: 06/17/18 06:20 06/17/18 06:20 Labs: Laboratory Results - last 24 hr 06/17/18 06/17/18 06/17/18 06:20 06:20 06:20 WBC 16.8 H RBC 4.24 L Hgb 13.2 L Hct 38.6 L MCV 91.1 MCH 31.1 MCHC 34.1 RDW 13.1 Plt Count 192 Neut % (Auto) 38.3 L Lymph % (Auto) 52.0 H [place] % (Auto) 5.1 Eos % (Auto) 4.5 H Baso % (Auto) 0.1 Neut # (Auto) 6400 Sodium 143 Potassium 4.2 Chloride 103 Carbon Dioxide 28 BUN 8 L Creatinine 1.00 Estimated GFR > 60.0 BUN/Creatinine Ratio 8.0 Glucose 117 H Calcium 8.7 Phosphorus 3.1 Total Bilirubin 0.9 AST 25 ALT 53 Alkaline Phosphatase 90 Total Protein 6.6 Albumin 3.6 Globulin 3.0 Albumin/Globulin Ratio 1.2 Assessment & Plan Plan: Assessment/Plan Narrative: IMPRESSION AND PLAN RIGHT LOWER LOBE PNEUMONIA. THIS IS MOST LIKELY COMMUNITY-ACQUIRED PNEUMONIA. PATIENT ON CEFEPIME AND AZITHROMYCIN FOR NOW. SPUTUM CULTURE WITH MIXED RESIDENT FRANCINE . OXYGEN THERAPY NEEDED ONLY. CONTINUOUS PULSE OX INDICATED. INCENTIVE SPIROMETERY WA X 10; ABG AND CXR SERIALLY TO FOLLOW INDICATED; ENCOURAGE AMB FIDEL TACHY-ARRHYTHMIA. MOST LIKELY SECONDARY TO NONCOMPLIANCE. HIS VITAL SIGNS ARE STABLE AT THIS POINT. HIS TACHYCARDIA HAS RESOLVED AFTER IV TREATMENT. RESTARTED ON HIS HOME METOPROLOL DOSE LEUKOCYTOSIS. SECONDARY TO PNEUMONIA. WORSENED SLIGHTLY OVERNIGHT; BLOOD CULTURE HAS BEEN COLLECTED AND ARE NEG TO DATE. DAILY CBC TO FOLLOW; BACTERURIA ON UA; PATIENT ALREADY ON ABX. DAILY CBC TO FOLLOW SIRS CRITERIA MET VS POSSIBLE SEPSIS SUSPECTED. PATIENT WILL BE CONTINUED ON IV FLUID; CONTINUE CURRENT ANTIBIOTICS. FOLLOW CULTURES. WATCH VITAL ORGANS CLOSELY. ADDITIONAL MANAGEMENT INDICATED CLINICALLY ACUTE RENAL FAILURE. MOST LIKELY PRE RENAL AZOTEMIA. RESOLVED; WE WILL AVOID ALL NEPHROTOXIN MEDICATIONS. DOSE ALL MEDICATION PER GFR. DAILY LABS TO FOLLOW ; IV FLUID HYPER GLYCEMIA. CAUSE IS UNCLEAR. ADDITIONAL MANAGEMENT OUTPATIENT. HYPOPHOSPHATEMIA. RESOLVED DC PER CLINICAL COURSE Quality VTE Deep Vein Thrombosis/Pulmonary Embolism Present on Admission: No
--- NOTE | 2018-06-17 15:11 | CM.DANOTE ---
Addendum entered by Cady Lou LPN 06/17/18 15:16: Met now with pt and introduced self and role. Pt confirms he lives in [place] with his Agustina and they will return as soon as he is released from the hospital. He notes that the experience here has been excellent. He is continuing to cough but is able to be up independently in the room as need be. Went over some of the face sheet information: pt says the insurance info is incorrect and that he and his gave the correct insurance cards to the walkin clinic and again to when he admitted. He said the cards went with his but that she can be called on her cell for the correct information. Antony Tiffanie [phone]. Pt says his is still working. He has Medicare A only: as a secondary insurance. Primary: [employer] PPO plan. Assured him that the [employer] would be alerted now (done via outlook email) so that this could all be sorted out tomorrow (Monday 06/18). Pt expressed thankfulness for same. PT did work with pt and has deemed him stable from a functional mobility standpoint for home when medically ready. P: home to [place] as soon as able to leave hospital. Original Note: Discharge Planning/Care Management DCP: assessment: Case received yesterday,EMR was reviewed. Discussed case in Team Rounds. Pt is a 67 year old male who admitted to care of the hospitalist team evening. Payer: listed as Medicare A and [facility]. Pt was coughing and quite ill and Dr. Lee indicated he would be here a few days as the cultures were being followed so decision made to see pt today. CM Discharge Assessment Start: 06/17/18 15:09 Freq: Status: Active Protocol: Document 06/17/18 15:09 ITV (Rec: 06/17/18 15:10 ITV [id number]) Discharge Planning Assessment Advance Directives? Yes Advance Directives on File No History Provided By Patient Medical Record Prior Living Arrangements Apartment/Condo Household Members spouse Type of transporation used prior to Drives own vehicle admit Review Status In Process Next Review Type Continued Stay Review
[2018-06-17] MEDS: SODIUM CHLORIDE 0.9% FLUSH 10 ML IV (21:17)
[2018-06-18] VITALS (7 sets, daily range): BP systolic 102–119; BP diastolic 63–78; PULSE 86–103; RESP 16–20; TEMP 36.6–38; O2SAT 91–98
[2018-06-18] MEDS: ACETAMINOPHEN 325 MG TABLET 650 MG PO (00:29)
[2018-06-18] MEDS: PANTOPRAZOLE 20 MG TABLET PO (05:51)
[2018-06-18 06:06] LABS: Add Manual Diff / Slide Review NO; Basophils Percent Auto 0.2 % (0-2); Eosinophils Percent Auto 5.4 % (2-4); Hematocrit 38.6 % (41-53); Hemoglobin 13.2 g/dL (13.5-17.5); Lymphocytes Percent Auto 50.5 % (25-40); Mean Corpuscular HGB Conc 34.1 % (30-36); Mean Corpuscular Hemoglobin 31.1 PG (26-34); Monocytes Percent Auto 5.3 % (3-14); Neutrophils Absolute Auto 6800 /uL (1500-7000); Neutrophils Percent Auto 38.6 % (50-75); Platelet Count 194 X10^3/uL (150-400); Red Blood Cell Count 4.24 X10^6/uL (4.5-5.9); White Blood Cell Count 17.5 X10^3/uL (4.5-11.0)
[2018-06-18 06:16] LABS: Alanine Aminotransferase 42 IU/L (21-72); Albumin 3.4 g/dL (3.5-5.0); Albumin Globulin Ratio 1.1 (1.0-2.8); Alkaline Phosphatase 92 U/L (38-126); Aspartate Aminotransferase 16 IU/L (17-59); Bilirubin Total 0.7 mg/dL (0.2-1.3); Blood Urea Nitrogen 11 mg/dL (9-20); Calcium 8.6 mg/dL (8.4-10.2); Carbon Dioxide 26 mmol/L (22-32); Chloride 103 mmol/L (98-107); Estimated Glomerular Filt Rate > 60.0 mL/min (>60); Glucose 110 mg/dL (80-110); HEMOLYSIS < 15 (0-50); Potassium 4.1 mmol/L (3.4-5.1); Sodium 143 mmol/L (137-145); Total Protein 6.4 g/dL (6.3-8.2)
[2018-06-18] MEDS: AZITHROMYCIN 250 MG TABLET 500 MG PO (08:07)
[2018-06-18] MEDS: CEFEPIME 1 GM in SODIUM CHLORIDE 0.9% 100 ML 200 ML IV (08:09)
[2018-06-18] MEDS: METOPROLOL IR 25 MG TABLET PO ×2 (08:09→21:01)
[2018-06-18] MEDS: SODIUM CHLORIDE 0.9% FLUSH 10 ML IV ×2 (08:10→21:01)
--- NOTE | 2018-06-18 16:41 | P.PN_ITS ---
Subjective Date Patient Seen: 06/18/18 Interval history: He denies shortness of breath. He has minimal cough. Patient continues to have spiking fevers with drenching sweats at night. He developed a rash over the chest and back, somewhat itching. No shortness of breath Exam Vital Signs (past 8 hours): - 06/18/18 12:00 06/18/18 15:30 Temperature 97.9 F 100.4 F H Pulse Rate 86 88 Respiratory Rate 16 17 Blood Pressure 118/74 119/71 Pulse Oximetry 98 91 Oxygen Delivery Method Room Air Oxygen Flow Rate 0 Narrative Exam Narrative: Pleasant male in no acute distress Skin: erythematous macular eruption on chest and back Lungs: Clear to auscultation CV: RRR Nl Sl S2 Abd: soft/ non tender/ non distended Ext: no edema Objective Labs Result Diagrams: 06/18/18 05:45 06/18/18 05:45 Labs: Laboratory Results - last 24 hr 06/18/18 06/18/18 05:45 05:45 WBC 17.5 H RBC 4.24 L Hgb 13.2 L Hct 38.6 L MCV 91.0 MCH 31.1 MCHC 34.1 RDW 13.0 Plt Count 194 Neut % (Auto) 38.6 L Lymph % (Auto) 50.5 H [place] % (Auto) 5.3 Eos % (Auto) 5.4 H Baso % (Auto) 0.2 Neut # (Auto) 6800 Sodium 143 Potassium 4.1 Chloride 103 Carbon Dioxide 26 BUN 11 Creatinine 1.00 Estimated GFR > 60.0 BUN/Creatinine Ratio 11.0 Glucose 110 Calcium 8.6 Total Bilirubin 0.7 AST 16 L ALT 42 Alkaline Phosphatase 92 Total Protein 6.4 Albumin 3.4 L Globulin 3.0 Albumin/Globulin Ratio 1.1 Assessment & Plan (1) Drug eruption: Problem details: Suspect drug allergy. Will adjust accordingly Current visit: Yes Status: Acute (2) Pneumonia: Problem details: Patient with elevated WBC and spiking fevers with sweats. Will d/c Cefepime/Azithyromycin. Will start Levofloxin and follow Suspect drug eruption secondary to initial antibiotics Qualifiers: Aspiration pneumonia type: Laterality: right Lung location: lower lobe of lung Pneumonia type: due to unspecified organism Qualified Code(s): J18.1 - Lobar pneumonia, unspecified organism Current visit: Yes Status: Acute Quality VTE Deep Vein Thrombosis/Pulmonary Embolism Present on Admission: No
[2018-06-18] MEDS: levoFLOXacin 750 MG/150 ML PIGGYBACK 100 MG IV (17:30)
--- NOTE | 2018-06-18 18:43 | PC.NURSE ---
pt resting in bed with family in room, denies SOB s/so exertion, nausea, and pain at this time. 94%RA, RLL fine crackles. Levo began 1729, infusing to R hand. Indep in room and hallways. tele in place with NSR. Call light in reach.
[2018-06-19 01:00] VITALS: O2SAT 95
[2018-06-19 01:10] VITALS: BP 111/73; PULSE 90; RESP 18; TEMP 37.4; O2SAT 91
[2018-06-19] MEDS: PANTOPRAZOLE 20 MG TABLET PO (06:12)
[2018-06-19 06:37] LABS: Add Manual Diff / Slide Review NO; Basophils Percent Auto 0.2 % (0-2); Eosinophils Percent Auto 4.6 % (2-4); Hematocrit 41.9 % (41-53); Hemoglobin 13.5 g/dL (13.5-17.5); Lymphocytes Percent Auto 54.9 % (25-40); Mean Corpuscular HGB Conc 32.2 % (30-36); Mean Corpuscular Hemoglobin 29.8 PG (26-34); Mean Corpuscular Volume 92.7 fL (80-100); Monocytes Percent Auto 4.3 % (3-14); Neutrophils Absolute Auto 7600 /uL (1500-7000); Platelet Count 247 X10^3/uL (150-400); Red Blood Cell Count 4.52 X10^6/uL (4.5-5.9); Red Cell Distribution Width 12.9 % (11.6-14.8); White Blood Cell Count 21.1 X10^3/uL (4.5-11.0)
[2018-06-19 06:46] LABS: Alanine Aminotransferase 47 IU/L (21-72); Albumin 3.7 g/dL (3.5-5.0); Albumin Globulin Ratio 1.2 (1.0-2.8); Alkaline Phosphatase 95 U/L (38-126); Aspartate Aminotransferase 35 IU/L (17-59); Bilirubin Total 0.6 mg/dL (0.2-1.3); Blood Urea Nitrogen 12 mg/dL (9-20); Calcium 8.5 mg/dL (8.4-10.2); Carbon Dioxide 25 mmol/L (22-32); Chloride 102 mmol/L (98-107); Estimated Glomerular Filt Rate > 60.0 mL/min (>60); Globulin 3.1 g/dL (1.7-4.1); Glucose 115 mg/dL (80-110); HEMOLYSIS < 15 (0-50); Potassium 4.5 mmol/L (3.4-5.1); Sodium 139 mmol/L (137-145); Total Protein 6.8 g/dL (6.3-8.2)
[2018-06-19 08:00] VITALS: BP 116/72; PULSE 91; RESP 17; TEMP 36.6; O2SAT 92
[2018-06-19 08:06] VITALS: O2SAT 96
[2018-06-19] MEDS: METOPROLOL IR 25 MG TABLET PO (08:24)
[2018-06-19] MEDS: SODIUM CHLORIDE 0.9% FLUSH 10 ML IV (08:26)
--- NOTE | 2018-06-19 09:12 | PM.DS.1 ---
History of Present Illness Date Patient Seen: 06/19/18 Chief complaint: Afib Narrative: This is a very pleasant 67-year-old male with a past medical history significant for tachyarrhythmia. Apparently patient was diagnosed with tachyarrhythmia around June of last year. He reported ventricular tachycardia He was given a echocardiogram examination and had reportedly normal ejection fraction as well as no significant valvulopathy He has been in his usual state of health when he developed some coughing as well as shortness of breath. He denies any sick contact. No travel outside the country. He denies any recent hospitalization. He reported some mild elevated temperature. He related a recent history of the body aching and feeling of having had a bad cold about 2 weeks ago These new symptoms started slowly after the cold symptoms were resolving. He also reported chest palpitation. He also admitted that he has not taken his beta-duke the last 24 hr. He stated he might have forgotten to take it. In the ED, a chest x-ray showing pneumonia of the right lower lung. He was giving antibiotics. Stated did feel some nausea better. He is about to finish a full sentence without having to stop because of shortness of breath. He is not a smoker. He had a history of malaria about 3 years ago shows completely treated. No other complaints at this time. Discharge Providers Date of admission: 06/15/18 17:03 Consults: 06/15/18 17:04 Consult to Discharge Planning Routine Comment: Consult to Occupational Therapy Evaluate & Treat Comment: Physician Instructions: Evaluate and treat Consult to Physical Therapy Evaluate & Treat Comment: Physician Instructions: Evaluate and Treat Discharge provider: Sarah Willams MD Discharge Date: 06/19/18 Summary Discharge Diagnosis: Right Lower Lobe Pneumonia History of Ventricular Tachycardia Fixed Drug eruption? allergic reaction to Cefepime? Hospital Course: Patient was admitted to the hospital for shortness of breath, cough, and fever. He was diagnosed with Right Lower lobe pneumonia. The patient continued to spike fevers, had increasing WBC's, and developed a rash on his chest, back, and shoulders. His antibiotics were switched from Cefepime/Azithyromcin to Levofloxacin. His rash improved as did his spiking fevers. He was not hypoxic, had improved cough and was deemed appropriate for discharge home. Status at Discharge Functional status at discharge: independent ambulation Overall status at discharge: patient is back to baseline Time Spent with Patient Less than 30 minutes Exam Vital Signs (past 8 hours): - 06/19/18 08:00 06/19/18 08:06 Temperature 98 F Pulse Rate 91 H Respiratory Rate 17 Blood Pressure 116/72 Pulse Oximetry 92 96 Oxygen Delivery Method Room Air Oxygen Flow Rate 0 Narrative Exam Narrative: Pleasant gentleman in no acute distress Lungs: clear to auscultation CV: RRR nl Sl S2 Abd: soft/ non tender/ non distended Ext: no edema Skin: macular eruption on chest and back less erythematous today Objective Labs Result Diagrams: 06/19/18 06:10 06/19/18 06:10 Labs: Laboratory Results - last 24 hr 06/19/18 06/19/18 06:10 06:10 WBC 21.1 H RBC 4.52 Hgb 13.5 Hct 41.9 MCV 92.7 MCH 29.8 MCHC 32.2 RDW 12.9 Plt Count 247 Neut % (Auto) 36.0 L Lymph % (Auto) 54.9 H [place] % (Auto) 4.3 Eos % (Auto) 4.6 H Baso % (Auto) 0.2 Neut # (Auto) 7600 H Sodium 139 Potassium 4.5 Chloride 102 Carbon Dioxide 25 BUN 12 Creatinine 1.00 Estimated GFR > 60.0 BUN/Creatinine Ratio 12.0 Glucose 115 H Calcium 8.5 Total Bilirubin 0.6 AST 35 ALT 47 Alkaline Phosphatase 95 Total Protein 6.8 Albumin 3.7 Globulin 3.1 Albumin/Globulin Ratio 1.2 Discharge Plan Discharge Plan Discharge Problem: Pneumonia Patient Disposition: Home Discharge Med Rec/Prescriptions Prescriptions: New levofloxacin 750 mg tablet 750 mg PO DAILY Qty: 5 RF: 0 Continue metoprolol tartrate 25 mg tablet 25 mg PO BID RF: 0 Provider Discharge Instructions Diet: Regular Activity: as tolerated Skin/Wound/Dressing Care Report to your healthcare provider any signs of infection, such as:: chills, fever, night sweats and unusual redness Discharge Data Attending Provider: Anthony Zhang Admit Date/Time: 06/15/18 17:03 Quality VTE Deep Vein Thrombosis/Pulmonary Embolism Present on Admission: No
--- NOTE | 2018-06-19 10:31 | PC.NURSE ---
Day shift: Pt left unit at approx 1030. Paperwork singed. All questions answered. Has all personal belongings. Pt has MD script as well.
== END 2018-06-19 10:37 | disposition home or self-care (01) | DRG 194 ==
LOC: ED 16:53 → AC 17:04
PROVIDERS: Admitting Provider Hospitalist; Emergency Provider Emergency Medicine; Visit Provider Hospitalist
DX: J18.9 Pneumonia, unspecified organism (principal); I47.2 Ventricular tachycardia; N17.9 Acute kidney failure, unspecified; R73.9 Hyperglycemia, unspecified; E83.39 Other disorders of phosphorus metabolism; T36.1X5A Adverse effect of cephalosporins and other beta-lactam antibiotics, initial encounter; L27.1 Localized skin eruption due to drugs and medicaments taken internally
CPT/HCPCS: 36415; 36591; 71045; 80053; 81001; 83605; 83735; 84100; 84145; 85025; 87040; 87070; 87205; 87400; 93005; 93010; 94762; 96361; 96365; 96366; 96375; 97161; 99284; 99285; J0692; J1644; J1956; J7050

== ENCOUNTER 2018-06-23 20:14 | Emergency (ER) | payer OTHER, SELFPAY ==
[2018-06-15 18:19] VITALS: BMI 25.5
[2018-06-23 20:25] VITALS: BP 111/63; PULSE 89; RESP 28; TEMP 37.1; O2SAT 92; BMI 25.0
--- NOTE | 2018-06-23 20:28 | DI.RAD.S_ITS ---
PROCEDURE: XR CHEST 2V INDICATIONS: h/o pneumonia, fever TECHNIQUE: 2 views of the chest were acquired. COMPARISON: [facility], CR, XR CHEST 1V, 06/15/2018, 14:55. FINDINGS: Surgical changes and devices: None. Lungs and pleura: Persistent, although slightly less prominent appearance of right basilar consolidation. Streaky opacities remain present in the left base. Mediastinum: Mediastinal contours are normal. Heart size is normal. Bones and chest wall: No suspicious bony abnormalities. Soft tissues appear unremarkable. IMPRESSION: Persistent bibasilar areas of patchy consolidation, right greater than left overall slightly improved compared to prior exam. Findings remain most suggestive of pneumonia. Recommend interval followup to document resolution and exclude presence of underlying mass lesion. Dictated by: Raquel Rausch M.D. on 06/23/2018 at 21:03 Approved by: Raquel Rausch M.D. on 06/23/2018 at 21:03
[2018-06-23 20:59] LABS: Add Manual Diff / Slide Review NO; Basophils Percent Auto 0.2 % (0-2); Eosinophils Percent Auto 4.8 % (2-4); Hematocrit 37.6 % (41-53); Hemoglobin 12.4 g/dL (13.5-17.5); Lymphocytes Percent Auto 43.9 % (25-40); Mean Corpuscular Hemoglobin 30.3 PG (26-34); Mean Corpuscular Volume 91.8 fL (80-100); Monocytes Percent Auto 3.4 % (3-14); Neutrophils Absolute Auto 9400 /uL (1500-7000); Neutrophils Percent Auto 47.7 % (50-75); Platelet Count 398 X10^3/uL (150-400); Red Blood Cell Count 4.09 X10^6/uL (4.5-5.9); Red Cell Distribution Width 13.2 % (11.6-14.8); White Blood Cell Count 19.8 X10^3/uL (4.5-11.0)
[2018-06-23 21:03] LABS: Creatine Kinase 35 U/L (55-170); Lactate (Lactic Acid) 0.9 mmol/L (0.7-2.1)
[2018-06-23] MEDS: SODIUM CHLORIDE 0.9% 1,000 ML 1000 ML IV (21:07)
[2018-06-23 21:15] LABS: Troponin I < 0.012 ng/mL (0.01-0.034)
[2018-06-23 21:22] LABS: Influenza A and B by PCR Rapid Negative (Negative)
--- NOTE | 2018-06-23 21:24 | ED_ITS ---
HPI - Fever General Chief Complaint: Fever Stated Complaint: states elevated HR, Fever Time Seen by Provider: 06/23/18 20:26 Source: patient Mode of arrival: ambulatory Limitations: no limitations History of Present Illness HPI Narrative: Patient is 67-year-old male presenting with cough and fever. He was admitted June 15 through June 19 of found to have large right pneumonia and new onset AFib with RVR. [facility] was [facility] at that time they flew to [place], and then proceeded to drive back and arrived here yesterday. He said he felt warm yesterday but did not take his temperature. Today he had a temperature at home. He has had persistent ongoing fatigue since his discharge. At some point he said his cough did go away , but he said he started a productive cough and done yesterday he does have some shortness of breath when he walks. He denies any chest pain or heart palpitations. He overall does not feel himself. MD complaint: fever and weakness Related Data Home Medications Medication Instructions Recorded Confirmed metoprolol tartrate 25 mg PO BID 06/15/18 06/15/18 Previous Rx's Medication Instructions Recorded levofloxacin 750 mg PO DAILY #5 tab 06/19/18 doxycycline hyclate 100 mg PO BID #14 cap 06/24/18 Allergies Allergy/AdvReac Type Severity Reaction Status Date / Time No Known Drug Allergies Allergy Verified 06/15/18 14:32 Review of Systems Review of Systems All systems reviewed & are unremarkable except as noted in HPI and below Constitutional Reports body ache(s), Reports fatigue, Reports fever(s) and Denies frequent falls ENT Ears, Nose, Mouth, and Throat: Denies change in voice, Denies dizziness, Denies neck pain and Denies sore throat Cardiovascular Denies chest pain, Denies irregular heart rhythm, Denies lightheadedness, Denies palpitations and Denies orthopnea Respiratory Reports as per HPI and Reports cough Gastrointestinal Gastrointestinal: Denies abdominal pain, Denies change in bowel habits, Denies diarrhea, Denies nausea and Denies vomiting Genitourinary Denies hematuria, Denies flank pain, Denies urinary incontinence and Denies urinary urgency Musculoskeletal Denies neck pain and Denies numbness Integumentary/Breasts Denies pruritus, Denies erythema, Denies rash and Denies wounds Neurologic Denies behavioral changes, Denies confusion, Denies dizziness, Denies frequent falls and Denies numbness Psychiatric Denies behavioral changes and Denies confusion Endocrine Reports fatigue and Denies palpitations PFSH Social History household members: spouse Smoking Status: Never smoker alcohol intake: former Exam Initial Vital Signs Initial Vital Signs: Vital Signs Temperature 98.8 F 06/23/18 20:25 Pulse Rate 89 06/23/18 20:25 Respiratory Rate 28 H 06/23/18 20:25 Blood Pressure 111/63 06/23/18 20:25 Pulse Oximetry 92 06/23/18 20:25 Const General: cooperative and No in distress Nutritional Appearance: average body habitus Orientation: alert, awake and oriented x3 Eyes General: appearance normal, both eyes and all related structures Neck Neck: normal visual inspection, full ROM and no meningeal signs Chest Chest: normal inspection of the chest Resp Effort & Inspection: normal respiratory effort and able to speak in complete sentences Auscultation: rales on the right at the base and no wheezes Cardio Rate: regular rate Rhythm: regular rhythm Heart Sounds: S1 normal, S2 normal and no murmurs GI Palpation: soft, No guarding and No tender Skin General: no rashes or lesions noted, No jaundice and No petechiae Neuro General: alert, oriented x3, gait normal and no focal motor deficits Speech: speech normal Extrem General: full ROM, no clubbing, cyanosis or edema, no pedal edema and no calf tenderness Course Orders Ordered: ED Orders 06/23/18 20:28 XR chest 2V Stat 06/23/18 20:35 Comprehensive Metabolic Panel Stat EKG-12 Lead Stat 06/23/18 20:50 Influenza A and B by PCR Rapid Stat 06/23/18 20:52 B Type Natriuretic Peptide Stat Complete Blood Count AUTO DIFF Stat Lactate (Lactic Acid) Stat Procalcitonin Stat Troponin & CK Cardiac Panel Stat 06/23/18 21:07 Blood Culture Stat 06/23/18 22:20 Urinalysis and Microscopic Stat 06/23/18 22:26 CT angio chest PE protocol Stat Discontinued Medications Doxycycline Hyclate (Vibramycin) 100 mg PO NOW ONE Stop: 06/24/18 00:16 Last Admin: 06/24/18 00:27 Dose: 100 mg Sodium Chloride (Normal Saline 0.9%) 1,000 mls @ 1,000 mls/hr IV BOLUS ONE Stop: 06/23/18 21:34 Last Infusion: 06/23/18 22:11 Dose: 0 mls/hr Admin: 06/23/18 21:07 Dose: 1,000 mls/hr Vital Signs - 8 hr 06/23/18 20:25 06/23/18 21:33 06/23/18 23:05 Temperature 98.8 F Pulse Rate 89 76 77 Respiratory Rate 28 H 21 19 Blood Pressure 111/63 Blood Pressure [Left Arm] 106/60 111/64 Pulse Oximetry 92 95 95 06/24/18 00:31 Temperature 98.6 F Pulse Rate 76 Respiratory Rate 18 Blood Pressure 118/74 Blood Pressure [Left Arm] Pulse Oximetry 95 MDM - Fever Lab Data Attestation: I reviewed the patient's lab results. Result diagrams: 06/23/18 20:52 06/23/18 20:35 Lab Results 06/23/18 06/23/18 06/23/18 Range/Units 20:35 20:50 20:52 WBC 19.8 H (4.5-11.0) X10^3/uL RBC 4.09 L (4.5-5.9) X10^6/uL Hgb 12.4 L (13.5-17.5) g/dL Hct 37.6 L (41-53) % MCV 91.8 (80-100) fL MCH 30.3 (26-34) PG MCHC 33.0 (30-36) % RDW 13.2 (11.6-14.8) % Plt Count 398 (150-400) X10^3/uL Neut % (Auto) 47.7 L (50-75) % Lymph % (Auto) 43.9 H (25-40) % [place] % (Auto) 3.4 (3-14) % Eos % (Auto) 4.8 H (2-4) % Baso % (Auto) 0.2 (0-2) % Neut # (Auto) 9400 H (5383-3079) /uL Sodium 138 (137-145) mmol/L Potassium 3.8 (3.4-5.1) mmol/L Chloride 103 (98-107) mmol/L Carbon Dioxide 22 (22-32) mmol/L BUN 14 (9-20) mg/dL Creatinine 1.10 (0.66-1.25) mg/dL Estimated GFR > 60.0 (>60) mL/min BUN/Creatinine Ratio 12.7 (6-22) Glucose 208 H (80-110) mg/dL Lactate (0.7-2.1) mmol/L Calcium 8.2 L (8.4-10.2) mg/dL Total Bilirubin 0.3 (0.2-1.3) mg/dL AST 39 (17-59) IU/L ALT 38 (21-72) IU/L Alkaline Phosphatase 97 (38-126) U/L Total Creatine Kinase (55-170) U/L CK-MB (CK-2) CK-MB (CK-2) Rel Index Troponin I (0.01-0.034) ng/mL B-Natriuretic Peptide (<100) Total Protein 6.4 (6.3-8.2) g/dL Albumin 3.4 L (3.5-5.0) g/dL Globulin 3.0 (1.7-4.1) g/dL Albumin/Globulin Ratio 1.1 (1.0-2.8) Procalcitonin (<0.5) ng/mL Urine Color Urine Appearance Urine pH (4.5-8.0) Ur Specific [place] (1.000-1.035) Urine Protein (Negative) Urine Glucose (UA) (Normal) g/dL Urine Ketones (NEGATIVE) Urine Occult Blood (Negative) Urine Nitrate (Negative) Urine Bilirubin (NEGATIVE) Urine Urobilinogen (0.2) E.U./dL Ur Leukocyte Esterase (NEGATIVE) Urine RBC (0-5/HPF) Urine WBC (0-5/HPF) Urine Bacteria (None) Hyaline Casts (None) Ur Culture Indicated? Influenza A & B (PCR) Negative (Negative) 06/23/18 06/23/18 06/23/18 Range/Units 20:52 20:52 20:52 WBC (4.5-11.0) X10^3/uL RBC (4.5-5.9) X10^6/uL Hgb (13.5-17.5) g/dL Hct (41-53) % MCV (80-100) fL MCH (26-34) PG MCHC (30-36) % RDW (11.6-14.8) % Plt Count (150-400) X10^3/uL Neut % (Auto) (50-75) % Lymph % (Auto) (25-40) % [place] % (Auto) (3-14) % Eos % (Auto) (2-4) % Baso % (Auto) (0-2) % Neut # (Auto) (5633-3754) /uL Sodium (137-145) mmol/L Potassium (3.4-5.1) mmol/L Chloride (98-107) mmol/L Carbon Dioxide (22-32) mmol/L BUN (9-20) mg/dL Creatinine (0.66-1.25) mg/dL Estimated GFR (>60) mL/min BUN/Creatinine Ratio (6-22) Glucose (80-110) mg/dL Lactate 0.9 (0.7-2.1) mmol/L Calcium (8.4-10.2) mg/dL Total Bilirubin (0.2-1.3) mg/dL AST (17-59) IU/L ALT (21-72) IU/L Alkaline Phosphatase (38-126) U/L Total Creatine Kinase (55-170) U/L CK-MB (CK-2) CK-MB (CK-2) Rel Index Troponin I (0.01-0.034) ng/mL B-Natriuretic Peptide < 100 (<100) Total Protein (6.3-8.2) g/dL Albumin (3.5-5.0) g/dL Globulin (1.7-4.1) g/dL Albumin/Globulin Ratio (1.0-2.8) Procalcitonin 0.05 (<0.5) ng/mL Urine Color Urine Appearance Urine pH (4.5-8.0) Ur Specific [place] (1.000-1.035) Urine Protein (Negative) Urine Glucose (UA) (Normal) g/dL Urine Ketones (NEGATIVE) Urine Occult Blood (Negative) Urine Nitrate (Negative) Urine Bilirubin (NEGATIVE) Urine Urobilinogen (0.2) E.U./dL Ur Leukocyte Esterase (NEGATIVE) Urine RBC (0-5/HPF) Urine WBC (0-5/HPF) Urine Bacteria (None) Hyaline Casts (None) Ur Culture Indicated? Influenza A & B (PCR) (Negative) 12/22/18 12/22/18 Range/Units 20:52 22:20 WBC (4.5-11.0) X10^3/uL RBC (4.5-5.9) X10^6/uL Hgb (13.5-17.5) g/dL Hct (41-53) % MCV (80-100) fL MCH (26-34) PG MCHC (30-36) % RDW (11.6-14.8) % Plt Count (150-400) X10^3/uL Neut % (Auto) (50-75) % Lymph % (Auto) (25-40) % [place] % (Auto) (3-14) % Eos % (Auto) (2-4) % Baso % (Auto) (0-2) % Neut # (Auto) (3695-0862) /uL Sodium (137-145) mmol/L Potassium (3.4-5.1) mmol/L Chloride (98-107) mmol/L Carbon Dioxide (22-32) mmol/L BUN (9-20) mg/dL Creatinine (0.66-1.25) mg/dL Estimated GFR (>60) mL/min BUN/Creatinine Ratio (6-22) Glucose (80-110) mg/dL Lactate (0.7-2.1) mmol/L Calcium (8.4-10.2) mg/dL Total Bilirubin (0.2-1.3) mg/dL AST (17-59) IU/L ALT (21-72) IU/L Alkaline Phosphatase (38-126) U/L Total Creatine Kinase 35 L (55-170) U/L CK-MB (CK-2) TNP CK-MB (CK-2) Rel Index TNP Troponin I < 0.012 (0.01-0.034) ng/mL B-Natriuretic Peptide (<100) Total Protein (6.3-8.2) g/dL Albumin (3.5-5.0) g/dL Globulin (1.7-4.1) g/dL Albumin/Globulin Ratio (1.0-2.8) Procalcitonin (<0.5) ng/mL Urine Color Yellow Urine Appearance Clear Urine pH 6.0 (4.5-8.0) Ur Specific [place] 1.010 (1.000-1.035) Urine Protein Negative (Negative) Urine Glucose (UA) Negative (Normal) g/dL Urine Ketones Negative (NEGATIVE) Urine Occult Blood Negative (Negative) Urine Nitrate Negative (Negative) Urine Bilirubin Negative (NEGATIVE) Urine Urobilinogen 0.2 (0.2) E.U./dL Ur Leukocyte Esterase Negative (NEGATIVE) Urine RBC None seen (0-5/HPF) Urine WBC None seen (0-5/HPF) Urine Bacteria None seen (None) Hyaline Casts 0-1/lpf (None) Ur Culture Indicated? 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 Has no pulmonary embolism identified. Pleura: Moderate right pleural effusion mild incident and thickened appearance appears complex. Mediastinum: Mild to moderate mediastinal adenopathy and right hilar adenopathy or mass encasing right infrahilar structures. Multiple scattered nodules of left lung highly suspicious for neoplasm and metastatic disease as. Indeterminate 3.1 cm complex nodule or cyst of the left thyroid ECG Data Attestation: I personally reviewed and interpreted this ECG as follows: Prior ECG tracings: available for review Interpretation: Normal sinus rhythm rate 82, GA interval 144, QTC 447, no acute ST changes no T-wave inversion no sign of ischemia MDM Narrative Medical decision making narrative: Patient has persistent leukocytosis. It looks as though initially did decrease his but never went below 15 during admission and by discharge it started. He has finished a full 10 day course of antibiotics and his WBC count is elevated. Normal lactic acid normal procalcitonin. However patient still feels fatigued he now has productive cough and says that he has had fever. And he does get short of breath at times. Will do CT to rule out PE for recent admission and recent AFib. CT is concerning for neoplasm but no PE identified. He has multiple concerning pulmonary nodules on both his right and left side for neoplasm. I have discussed the results with patient and his is. They have a follow-up with his PCP in [place] on June 27. At this time around of doxycycline for symptoms of worsening productive cough and fever. However I suspect he will more likely the cause. He is given discs of x-rays and CT. He is also given copies of his EKGs. Other physician note will have to come through of the medical records. states that he has a known thyroid nodule it has been biopsied and benign Discharge Plan Departure Patient Disposition: Home Clinical Impression: Pneumonia, Multiple pulmonary nodules Discharge Date/Time: 06/24/18 00:36 Interventions: ED Discharge Assessment Last Done: 06/24/18 00:31 Instructions: Atypical Pneumonia, DI for Pulmonary Nodule Activity Restrictions/Additional Instructions: *You have been diagnosed with multiple pulmonary nodules concerning for possible cancer, also possible persistent ongoing pneumonia *What to do: You will need close follow-up possible biopsy and further evaluation. *Continue to take medications as directed Doxycycline 100 mg twice a day *Follow up with your primary care provider as scheduled next week *Return to ER if you should have increasing shortness of breath, chest pain, or any new, worsening or concerning symptoms Prescriptions: New doxycycline hyclate 100 mg capsule 100 mg PO BID Qty: 14 RF: 0 No Action metoprolol tartrate 25 mg tablet 25 mg PO BID RF: 0 levofloxacin 750 mg tablet 750 mg PO DAILY Qty: 5 RF: 0 Referrals: saurav Mojica [Other] - 06/27/18 12:00 am
[2018-06-23 21:33] VITALS: BP 106/60; PULSE 76; RESP 21; O2SAT 95
[2018-06-23 21:33] LABS: Alanine Aminotransferase 38 IU/L (21-72); Albumin 3.4 g/dL (3.5-5.0); Albumin Globulin Ratio 1.1 (1.0-2.8); Alkaline Phosphatase 97 U/L (38-126); Aspartate Aminotransferase 39 IU/L (17-59); BUN Creatinine Ratio 12.7 (6-22); Bilirubin Total 0.3 mg/dL (0.2-1.3); Blood Urea Nitrogen 14 mg/dL (9-20); Calcium 8.2 mg/dL (8.4-10.2); Carbon Dioxide 22 mmol/L (22-32); Chloride 103 mmol/L (98-107); Estimated Glomerular Filt Rate > 60.0 mL/min (>60); Glucose 208 mg/dL (80-110); HEMOLYSIS < 15 (0-50); Potassium 3.8 mmol/L (3.4-5.1); Sodium 138 mmol/L (137-145); Total Protein 6.4 g/dL (6.3-8.2)
[2018-06-23 21:37] LABS: Procalcitonin 0.05 ng/mL (<0.5)
[2018-06-23 21:49] LABS: B Type Natriuretic Peptide < 100 (<100)
--- NOTE | 2018-06-23 22:26 | DI.CT.S_ITS ---
PROCEDURE: CT ANGIO CHEST PE PROTOCOL INDICATIONS: hypoxia, recent pneumonia and hospitalization TECHNIQUE: After the administration of intravenous contrast, 2 mm thick sections acquired from the pulmonary apices to the posterior costophrenic angles. 3-dimensional maximum intensity projection (MIP) coronal and sagittal reformats were then acquired through the thorax. For radiation dose reduction, the following was used: automated exposure control, adjustment of mA and/or kV according to patient size. COMPARISON: [facility], CR, XR CHEST 1V, 06/15/2018, 14:55. [facility], CR, XR CHEST 2V, 06/23/2018, 20:46. FINDINGS: Image quality: Excellent. Pulmonary arteries: Pulmonary arteries are normal in size, and demonstrate no intraluminal filling defects to suggest central pulmonary embolism. Lungs and pleura: There is a masslike density in the right lower lobe measuring 6.5 x 5.3 cm. There is right pleural infiltrate and consolidation. The [id number] right pleural effusion is present. There is narrowing of the right middle lobe and lower lobe bronchi. There is a 1.1 cm nodule in the right middle lobe. Multiple lung nodules are present in left lung involving both upper and lower lobes. Mediastinum: There is right hilar and basilar lymphadenopathy. Enlarged right hilar lymph node measures 2.5 cm, compressing the right middle lobe and right lower lobe bronchi. Enlarged mediastinal lymph nodes measure up to 1.9 x 2.2 cm in the subcarinal region. Heart size is normal, without pericardial effusion. There is a small hiatal hernia. The gastroesophageal junction appear thickened. Bones and chest wall: No suspicious bony lesions. Ribs and thoracic spine appear intact throughout. There is a 2.3 cm left thyroid mass.. No axillary or supraclavicular adenopathy. Abdomen: Visualized upper abdominal solid organs appear normal in the early arterial phase of enhancement. IMPRESSION: 1. No evidence for central pulmonary embolism. 2. There is a masslike density in the right lower lobe measuring 6.5 x 5.3 cm, suspicious for neoplasm. PET/CT may be helpful for further evaluation. 3. Superimposed right lower lobe pneumonia. 4. Small to moderate right pleural effusion. 5. Multiple lung nodules bilaterally suspicious for pulmonary metastasis. 6. Right hilar and mediastinal lymphadenopathy suspicious for luis fernando metastasis. 7. A 2.3 cm mass in the left thyroid lobe. Thyroid ultrasound is suggested for followup evaluation. No significant discrepancy with the power and recovery shift engineer radiology preliminary report. Dictated by: Matthew Luna M.D. on 06/24/2018 at 7:42 Approved by: Matthew Luna M.D. on 06/24/2018 at 7:58
[2018-06-23 22:32] LABS: Bacteria Urine None Seen; RBC Urine None Seen (0-5/HPF); WBC Urine None Seen (0-5/HPF)
[2018-06-23 22:41] LABS: Appearance Urine UA CLEAR; Bilirubin Urine UA NEGATIVE (NEGATIVE); Color Urine UA YELLOW; Glucose Urine UA NEGATIVE (Normal); Ketones Urine UA NEGATIVE (NEGATIVE); Leukocyte Esterase Urine UA NEGATIVE (NEGATIVE); Nitrite Urine UA NEGATIVE (Negative); Occult Blood Urine UA NEGATIVE (Negative); Protein Urine UA NEGATIVE (Negative); Urobilinogen Urine UA 0.2 E.U./dL (0.2)
[2018-06-23 22:52] LABS: Culture Indicated Urine Cult Not Indicated; Hyaline Casts Urine 0-1/LPF
[2018-06-23 23:05] VITALS: BP 111/64; PULSE 77; RESP 19; O2SAT 95
[2018-06-24] MEDS: DOXYCYCLINE HYCLATE 100 MG TABLET PO (00:27)
[2018-06-24 00:31] VITALS: BP 118/74; PULSE 76; RESP 18; TEMP 37; O2SAT 95
== END 2018-06-24 00:36 | disposition home or self-care (01) ==
PROVIDERS: Internal Medicine; Emergency Provider Emergency Medicine
DX: J18.9 Pneumonia, unspecified organism (principal); R91.8 Other nonspecific abnormal finding of lung field
CPT/HCPCS: 36415; 36591; 71046; 71275; 80053; 81001; 82550; 83605; 83880; 84145; 84484; 85025; 87040; 87400; 93005; 96360; 99283; 99285; Q9967